=== PATIENT | male | born 1945 | race Caucasian/White ===

== ENCOUNTER → 2023-07-17 13:42 | Outpatient (REF) | payer MEDICARE, SELFPAY | LOC: RCS 13:42 | PROVIDERS: ATTENDING PHYSICIAN Internal Medicine Cardiovascular Disease; FAMILY PHYSICIAN Family Medicine | DX: I48.21 Permanent atrial fibrillation (principal); Z86.73 Personal history of transient ischemic attack (TIA), and cerebral infarction without residual deficits; I50.32 Chronic diastolic (congestive) heart failure | CPT/HCPCS: 93306 ==